=== PATIENT | male | born 2005 | race Caucasian/White ===

== ENCOUNTER 2024-02-10 18:25 | Emergency (ER) | payer SELFPAY ==
[2024-02-10] MEDS ORDERED: Cyclobenzaprine 10 MG TAB ONE (21:19)
[2024-02-10] MEDS ORDERED: Ibuprofen 200 MG TAB ONE (21:20)
== END 2024-02-10 21:34 | disposition home or self-care (01) ==
LOC: CSHERS 18:25
DX: S13.4XXA Sprain of ligaments of cervical spine, initial encounter (principal); V43.52XA Car driver injured in collision with other type car in traffic accident, initial encounter; W22.10XA Striking against or struck by unspecified automobile airbag, initial encounter
CPT/HCPCS: 72100; 72125